=== PATIENT | male | born 1935 | race Caucasian/White ===

== ENCOUNTER → 2016-06-24 | Outpatient (CLI) | payer OTHER ==
[~2016-06-24] VITALS: Ht 185.4 cm; Wt 76.2 kg
[~2016-06-24] MED LIST: ARGININE PO; CHONDROITIN SULFATE PO; COQ10-VIT E 101 EACH PO; FISH OIL 1,2001 EAC4 PO; GLUCOSAMINE 1,1 EAC1 PO; GLUCOSAMINE1000 MG PO; LO-DOSE ASPIRIN81 M1 PO; LUMIGAN 0.50 DROP/22 BOTH EYES; NEXIUM20 MG PO; ONCE DAILY1 EACH PO; PAPAYA ENZYME1 EAC2 PO; PRESERVISION A1 EAC2 PO; ZOCOR10 MG PO; [UNRECOGNIZED DRUG - OTHER] PO; [UNRECOGNIZED DRUG - OTHER] PO; [UNRECOGNIZED DRUG - OTHER] PO
== END | disposition home or self-care (01) ==
LOC: AMB 05-27 14:00
PROC: 0D5P8ZZ Destruction of Rectum, Via Natural or Artificial Opening Endoscopic (ICD-10-PCS; principal; 2016-06-24)
DX: K55.20 Angiodysplasia of colon without hemorrhage (principal); K57.30 Diverticulosis of large intestine without perforation or abscess without bleeding; K64.8 Other hemorrhoids; Z86.010 Personal history of colon polyps; I71.4 Abdominal aortic aneurysm, without rupture; Z85.46 Personal history of malignant neoplasm of prostate; Z92.3 Personal history of irradiation; K21.9 Gastro-esophageal reflux disease without esophagitis; R01.1 Cardiac murmur, unspecified; Z87.891 Personal history of nicotine dependence; Z82.49 Family history of ischemic heart disease and other diseases of the circulatory system

== ENCOUNTER → 2016-11-04 | Outpatient (CLI) | payer OTHER ==
[~2016-11-04] VITALS: Ht 185.4 cm; Wt 77.1 kg
[~2016-11-04] MED LIST changes: +AMOXICILLIN500 M1 PO
== END | disposition home or self-care (01) ==
LOC: AMB 13:04
PROC: 0D5P8ZZ Destruction of Rectum, Via Natural or Artificial Opening Endoscopic (ICD-10-PCS; principal; 2016-11-04)
DX: K55.20 Angiodysplasia of colon without hemorrhage (principal); K62.7 Radiation proctitis; K57.30 Diverticulosis of large intestine without perforation or abscess without bleeding; K64.8 Other hemorrhoids; Z86.010 Personal history of colon polyps; K21.9 Gastro-esophageal reflux disease without esophagitis; Z85.46 Personal history of malignant neoplasm of prostate; Z95.3 Presence of xenogenic heart valve; I51.9 Heart disease, unspecified; Z79.82 Long term (current) use of aspirin; Z87.891 Personal history of nicotine dependence
CPT/HCPCS: 93005